=== PATIENT | male | born 1995 | race Caucasian/White ===

== ENCOUNTER 2025-04-11 16:13 | Emergency (ER) | payer OTHER ==
[~2025-04-11] VITALS: Ht 170.2 cm; Wt 95.5 kg
[2025-04-11 16:22] VITALS: BP 165/98; PULSE 97; RESP 20; TEMP 98.2; O2SAT 98
[2025-04-11 16:45] LABS: GLUCOMETER DEV NAME(LOC) ERT.7; GLUCOSE,POINT OF CARE 386 MG/DL (70-110)
[2025-04-11 17:42] LABS: PLATELET COUNT (AUTO) 204 K/uL (150-450); RED BLOOD CELL COUNT(AUTO) 4.81 MIL/uL (4.50-5.90); RED CELL DISTRIBUTION WIDTH 13.1 % (11.5-14.5); WHITE BLOOD COUNT (AUTO) 6.4 K/uL (4.5-11.0)
[2025-04-11 17:53] LABS: CALCIUM, TOTAL 8.7 mg/dL (8.8-10.5); CREATININE 1.16 mg/dL (0.60-1.30); GLOMERULAR FILTR. RATE CALC > 60 mL/min (>60); SODIUM SERUM 133 mmol/L (136-145); UREA NITROGEN, BLOOD 15 mg/dL (7-18)
[2025-04-11 18:02] LABS: TROPONIN I-HIGH SENSITIVITY 4 ng/L (<76)
[2025-04-11 18:03] LABS: GLUCOSE,RANDOM 413 mg/dL (70-110)
[2025-04-11] MEDS: INSULIN REGULAR, HUMAN 100 UNITS/ML SQ ONE (18:37)
[2025-04-11] MEDS ORDERED: METF-81 PO (18:46)
== END 2025-04-11 19:08 | disposition home or self-care (01) ==
LOC: EMS 16:13
DX: R07.89 Other chest pain (principal); E11.65 Type 2 diabetes mellitus with hyperglycemia; R20.0 Anesthesia of skin; K76.0 Fatty (change of) liver, not elsewhere classified
CPT/HCPCS: 99285; 71045; 80048; 82962; 84484; 85025; 36415; 93005; 96372; J1815